=== PATIENT | female | born 1995 | race Asian ===

== ENCOUNTER 2017-05-06 10:08 | Emergency (ER) | payer MEDICAID ==
[~2017-05-06] VITALS: Ht 165.1 cm; Wt 65.8 kg
[2017-05-06 10:26] VITALS: BP 128/79; Ht 165.1 cm; Wt 65.8 kg
== END 2017-05-06 12:02 | disposition left against medical advice (07) ==
LOC: ED 10:08
DX: R51 Headache (principal); Z53.21 Procedure and treatment not carried out due to patient leaving prior to being seen by health care provider